=== PATIENT | female | born 1965 | race Caucasian/White ===

== ENCOUNTER 2020-05-14 02:11 | Emergency (ER) | payer MEDICARE, OTHER ==
[2020-05-14 03:01] LABS: HEMOGLOBIN 14.3 gm/dl (12.3-15.3); RED BLOOD COUNT 4.82 M/UL (4.00-5.10); WHITE BLOOD COUNT 7.6 K/UL (4.5-11.0)
[2020-05-14 04:12] LABS: BUN/CREATININE RATIO 13 (0-10)
[2020-05-14] MEDS ORDERED: LEVOFLOXACIN500 MG PO ×2 (05:00→05:18)
[2020-05-14] MEDS ORDERED: HYDROCODON-ACE1 EAC4 PO (05:00)
[2020-05-14] MEDS ORDERED: CLINDAMYCIN HC300 MG PO ×2 (05:00→05:18)
== END 2020-05-14 06:07 | disposition home or self-care (01) ==
LOC: ER1 02:11
PROVIDERS: Family Medicine
DX: L03.211 Cellulitis of face (principal); K02.9 Dental caries, unspecified; K05.6 Periodontal disease, unspecified; F17.210 Nicotine dependence, cigarettes, uncomplicated; Z88.0 Allergy status to penicillin; Z88.2 Allergy status to sulfonamides; Z88.1 Allergy status to other antibiotic agents
CPT/HCPCS: 70487; 80053; 83605; 85025; 87040; 96365; 96368; 99284; J1956; Q9963

== ENCOUNTER 2021-06-25 12:40 | Emergency (ER) | payer MEDICARE, OTHER ==
[~2021-06-25 12:40] MED LIST: CLINDAMYCIN HC300 MG PO; HYDROCODON-ACE1 EAC4 PO; LEVOFLOXACIN500 MG PO
[2021-06-25 14:10] LABS: RED BLOOD COUNT 4.7 M/UL (4.00-5.10); WHITE BLOOD COUNT 9.8 K/UL (4.5-11.0)
== END 2021-06-25 14:35 | disposition left against medical advice (07) ==
LOC: ER1 12:40
PROVIDERS: Physician Assistant
DX: R53.1 Weakness (principal); Z20.822 Contact with and (suspected) exposure to COVID-19
CPT/HCPCS: 80053; 82550; 82553; 83874; 84484; 85025; 93005; 99285; U0002